=== PATIENT | male | born 1975 | race Caucasian/White ===

== ENCOUNTER 2017-03-12 04:40 | Emergency (ER) | payer MEDICAID ==
[~2017-03-12] VITALS: Ht 193 cm; Wt 97.5 kg
[~2017-03-12 04:40] MED LIST: CEPH-570 PO
[2017-03-12 05:20] VITALS: BP 126/76
--- NOTE | 2017-03-12 05:21 | NUR ---
PT BIBSELF AMBULATORY TO ER BED 8, C/O LLE PAIN, DISCOLORATION, SWELLING S/P INJECTING HEROIN X3 DAYS AGO. PT AOX3 RR EVEN AND UNLABORED. NO SOB NOTED. NAD NOTED. NO NVD AT THIS TIME. PT GOWNED WAITING FOR MD GARCÍA.
== END 2017-03-12 06:46 | disposition home or self-care (01) ==
LOC: ER 04:50
DX: L03.116 Cellulitis of left lower limb (principal); F17.210 Nicotine dependence, cigarettes, uncomplicated
CPT/HCPCS: 99283; A4606; Z7610

== ENCOUNTER 2021-01-19 22:33 | Emergency (ER) | payer MEDICAID ==
[~2021-01-19] VITALS: Ht 190.5 cm; Wt 99.8 kg
[2021-01-19 22:49] VITALS: BP 129/79
--- NOTE | 2021-01-19 23:07 | NUR ---
Patient discharged to home in stable condition. Written and verbal after care instructions given. Patient verbalizes understanding of instruction. Pt ambulatory with a steady gait
== END 2021-01-19 23:31 | disposition home or self-care (01) ==
LOC: ER 22:33
DX: H57.89 Other specified disorders of eye and adnexa (principal); F17.200 Nicotine dependence, unspecified, uncomplicated; Z60.2 Problems related to living alone

== ENCOUNTER 2021-06-09 03:23 | Emergency (ER) | payer OTHER ==
--- NOTE | 2021-06-09 05:15 | NUR ---
CALLED TO TRIAGE NOT ANSWER
--- NOTE | 2021-06-09 05:58 | NUR ---
CALLED PT FR TRIAGE. NO ANSWER. CALLED PT ON HIS CELL NUMBER WITH NO RESPONSE
--- NOTE | 2021-06-09 06:13 | NUR ---
STILL NOT IN TRIAGE
== END 2021-06-09 06:14 | disposition left against medical advice (07) ==
LOC: ER 03:27
DX: Z53.21 Procedure and treatment not carried out due to patient leaving prior to being seen by health care provider (principal)

== ENCOUNTER 2025-03-19 01:12 | Emergency (ER) | payer OTHER ==
[~2025-03-19] VITALS: Ht 190.5 cm; Wt 104.3 kg
[2025-03-19] MEDS ORDERED: SULFAMETH/TRIMETH 800/160 MG 1 UDTAB TABLET ONE (03:20)
[2025-03-19] MEDS ORDERED: CEPHALEXIN MONOHYDRATE 500 MG CAPSULE PO ONE (03:20)
[2025-03-19] MEDS ORDERED: LIDOCAINE 1% INJ 50 ML MDV IJ ONE (03:20)
[2025-03-19] MEDS: LIDOCAINE 1% INJ 50 ML MDV IJ ONE (03:30)
[2025-03-19] MEDS: SULFAMETH/TRIMETH 800/160 MG 1 UDTAB TABLET PO ONE (03:31)
[2025-03-19] MEDS ORDERED: CEPH-570 PO (03:31)
[2025-03-19] MEDS: CEPHALEXIN MONOHYDRATE 500 MG CAPSULE PO ONE (03:31)
[2025-03-19] MEDS ORDERED: SULF1TAB48 PO (03:31)
[2025-03-19 03:35] VITALS: BP 143/74; TEMP 98.7; O2SAT 100
== END 2025-03-19 03:36 | disposition home or self-care (01) ==
LOC: ER 01:20
DX: L02.413 Cutaneous abscess of right upper limb (principal); F17.200 Nicotine dependence, unspecified, uncomplicated; Z60.2 Problems related to living alone
CPT/HCPCS: 99284; 10060; J3490; A6403